=== PATIENT | male | born 1995 | race Caucasian/White ===

== ENCOUNTER → 2019-02-06 | Outpatient (CLI) | payer OTHER ==
--- NOTE | 2019-02-06 15:05 | REP ---
MRI LUMBAR SPINE WITHOUT CONTRAST: HISTORY: Low back pain. No comparison imaging. Left leg numbness and tingling. TECHNIQUE: Sagittal and axial T1- and T2-weighted scans are acquired in the usual fashion with and without fat saturation. Sequences include spin echo, turbo spin echo, and STIR imaging sequences. MRI FINDINGS: Lumbar vertebral body heights are preserved. Alignment is normal. Cortical and medullary bone signal intensity is normal. There is no evidence of spondylolysis or spondylolisthesis. Conus medullaris tip is normal in position and appearance at L1. There is degenerative narrowing of the L1-2 disc space mild in degree. There is subtle disc bulging indenting the ventral margin of the thecal sac at L1-2. No neural foraminal narrowing or central canal stenosis is seen. The posterior margins of the L2-3, L3-4, and L4-5 discs are unremarkable. At L5-S1, there is minimal central disc bulging without thecal sac compression. There is mild facet hypertrophy. IMPRESSION: Early degenerative disc disease changes at L1-2 and minimal bulging L5-S1. Mild facet hypertrophy and L5-S1. Otherwise negative. Electronically Signed by Peterson Hahn MD 02/06/2019 03:44 P
== END ==
LOC: M RAD 12:55
PROVIDERS: ATTEND Physician Assistant Medical
DX: M51.36 Other intervertebral disc degeneration, lumbar region (principal); M51.27 Other intervertebral disc displacement, lumbosacral region